=== PATIENT | male | born 1965 | race Two or more races ===

== ENCOUNTER 2016-10-23 14:54 | Emergency (ER) | payer MEDICAID ==
[~2016-10-23] VITALS: Ht 185.4 cm; Wt 88.5 kg
[~2016-10-23 14:54] MED LIST: ASPI81CH49 PO; GLIP-115 PO; LISI-646 PO; METF-370 PO; SIMV10TA84 PO
[2016-10-23] MEDS ORDERED: cloNIDine HCL 0.1 MG TAB PO ONE (16:15)
[2016-10-23 17:04] LABS: Basophils # (auto) 0 uL; Basophils % (auto) 0.5 % (0.0-2.0); CONDITION Y; Eosinophils # (auto) 0.2 uL; Eosinophils % (auto) 3.5 % (0.0-7.0); Hematocrit 26.3 % (41.0-53.0); Hemoglobin 8.9 g/dL (13.5-17.5); Lymphocytes # (auto) 1.8 uL; Lymphocytes % (auto) 32.5 % (10.0-50.0); Mean Corpuscular Hemoglobin 28.3 pg (28.0-32.0); Mean Corpuscular Hgb Conc. 33.6 g/dL (32.0-36.0); Mean Corpuscular Volume 84.2 fL (80.0-100.0); Mean Platelet Volume 7.1 fL (7.4-10.4); Monocytes # (auto) 0.4 uL; Monocytes % (auto) 7.7 % (0.0-12.0); Neutrophils # (auto) 3.1 uL; Neutrophils % (auto) 55.8 % (37.0-80.0); Platelet Count (auto) 284 10^3/uL (140-450); Red Cell Distribution Width 14.8 % (11.6-16.0); White Blood Cell 5.5 10^3/uL (4.4-10.8)
[2016-10-23 17:21] LABS: INR 0.9 (0.9-1.15); Partial Thromboplastin Time 27.9 sec (22.64-33.71); Prothrombin Time 9.8 sec (9.37-12.3)
[2016-10-23 17:34] LABS: B-Type Natriuretic Peptide 114.7 pg/mL (0-100)
[2016-10-23 17:42] LABS: Temperature: 23.1 C (20.0-25.0)
[2016-10-23 18:01] LABS: Albumin 2.6 g/dL (3.4-5.0); Alkaline Phosphatase 111 U/L (45-117); Aspartate Aminotransferase 9 U/L (15-37); BUN/Creatinine Ratio 10.8; Bilirubin, Total 0.1 mg/dL (0.2-1.0); Blood Urea Nitrogen 46 mg/dL (7-18); Calcium 8.2 mg/dL (8.5-10.1); Carbon Dioxide 23 mmol/L (21-32); GFR African American 19 mL/min; GFR Non-African American 16 mL/min; Glucose 173 mg/dL (74-106); Magnesium 2.6 mg/dL (1.6-2.6); Total Protein 6.4 g/dL (6.4-8.2)
[2016-10-23 18:08] LABS: Anion Gap 8 (5-15); Chloride 115 mmol/L (98-107); Sodium 146 mmol/L (136-145)
[2016-10-23 23:00] VITALS: BP 131/79
== END 2016-10-23 23:24 | disposition home or self-care (01) ==
LOC: ER 15:10
DX: N17.9 Acute kidney failure, unspecified (principal); H57.8 Other specified disorders of eye and adnexa; R53.1 Weakness; I16.0 Hypertensive urgency; E11.65 Type 2 diabetes mellitus with hyperglycemia; E78.5 Hyperlipidemia, unspecified; I10 Essential (primary) hypertension; Z79.899 Other long term (current) drug therapy; R42 Dizziness and giddiness
CPT/HCPCS: 36415; 70450; 80053; 83735; 83880; 84484; 85025; 85610; 85730; 93005; 94761

== ENCOUNTER 2017-04-09 18:58 | Emergency (ER) | payer MEDICAID ==
[~2017-04-09] VITALS: Ht 185.4 cm; Wt 90.7 kg
[~2017-04-09 18:58] MED LIST changes: +AMLO5TAB2 PO; +ATOR1TAB PO; -LISI-646 PO; -METF-370 PO; +METO-158 PO; +PANT40TA2 PO; +SEVE800T PO; -SIMV10TA84 PO
[2017-04-09 20:01] LABS: Basophils # (auto) 0 uL; Basophils % (auto) 0.7 % (0.0-2.0); Eosinophils # (auto) 0.2 uL; Eosinophils % (auto) 3.5 % (0.0-7.0); Hemoglobin 11.5 g/dL (13.5-17.5); Lymphocytes # (auto) 1.4 uL; Lymphocytes % (auto) 19.7 % (10.0-50.0); Mean Corpuscular Hemoglobin 27.6 pg (28.0-32.0); Mean Corpuscular Hgb Conc. 32.8 g/dL (32.0-36.0); Mean Corpuscular Volume 84.3 fL (80.0-100.0); Monocytes # (auto) 0.5 uL; Neutrophils # (auto) 4.9 uL; Neutrophils % (auto) 69.1 % (37.0-80.0); Platelet Count (auto) 195 10^3/uL (140-450); Red Blood Cells 4.15 10^6/uL (4.5-5.90); Red Cell Distribution Width 14.7 % (11.8-14.3); White Blood Cell 7.1 10^3/uL (4.4-10.8)
[2017-04-09] MEDS ORDERED: cloNIDine HCL 0.1 MG TAB ONE (20:14)
[2017-04-09] MEDS ORDERED: cloNIDine HCL 0.1 MG TAB PO ONE (20:15)
[2017-04-09 20:23] LABS: Albumin 3.4 g/dL (3.4-5.0); BUN/Creatinine Ratio 6.1; Calcium 8.3 mg/dL (8.5-10.1); Potassium 4.7 mmol/L (3.5-5.1)
[2017-04-09 20:29] LABS: Bilirubin, Total 0.4 mg/dL (0.2-1.0); Total Protein 7.5 g/dL (6.4-8.2)
[2017-04-09] MEDS ORDERED: MORPHINE SULFATE 4 MG/ML SYR/VIAL IV ONE (20:30)
[2017-04-09] MEDS ORDERED: ONDANSETRON HCL 4 MG/2 ML VIAL IV ONE (20:30)
[2017-04-09] MEDS ORDERED: ONDANSETRON HCL 4 MG/2 ML VIAL ONE (20:32)
[2017-04-09] MEDS ORDERED: MORPHINE SULFATE 4 MG/ML SYR/VIAL ONE (20:32)
[2017-04-09 20:46] LABS: INR 0.97 (0.9-1.15); Partial Thromboplastin Time 26.9 sec (22.64-33.71); Prothrombin Time 10.6 sec (9.37-12.3)
[2017-04-09] MEDS ORDERED: LABETALOL HCL 200 MG TAB PO ONE (21:45)
[2017-04-09] MEDS ORDERED: VALSARTAN 80 MG TAB PO ONE (23:00)
[2017-04-10] MEDS ORDERED: LABETALOL HCL 200 MG TAB PO ONE (00:45)
[2017-04-10 03:54] VITALS: BP 119/72
== END 2017-04-10 04:16 | disposition home or self-care (01) ==
LOC: ER 18:58
DX: N20.0 Calculus of kidney (principal); R51 Headache; N18.6 End stage renal disease; E11.22 Type 2 diabetes mellitus with diabetic chronic kidney disease; I12.0 Hypertensive chronic kidney disease with stage 5 chronic kidney disease or end stage renal disease; E78.5 Hyperlipidemia, unspecified; Z99.2 Dependence on renal dialysis
CPT/HCPCS: 36415; 70450; 71045; 74176; 80053; 82150; 83690; 83735; 83880; 84484; 85025; 85379; 85610; 85730; 93005; 96374; 96375; 99285; J2270; J2405

== ENCOUNTER 2017-07-18 18:27 | Inpatient (IN) | payer MEDICAID, OTHER ==
[~2017-07-18] VITALS: Ht 185.4 cm; Wt 90.5 kg
[2017-07-18] MEDS ORDERED: cloNIDine HCL 0.1 MG TAB ONE (19:34)
[2017-07-18] MEDS ORDERED: ONDANSETRON HCL 4 MG/2 ML VIAL ONE (19:35)
[2017-07-18 19:56] LABS: INR 0.98 (0.9-1.15); Partial Thromboplastin Time 26.6 sec (22.64-33.71); Prothrombin Time 10.7 sec (9.37-12.3)
[2017-07-18 20:13] LABS: Albumin 3.7 g/dL (3.4-5.0); BUN/Creatinine Ratio 16.9; Bilirubin, Total 1.3 mg/dL (0.2-1.0); Calcium 7.7 mg/dL (8.5-10.1); Magnesium 1.9 mg/dL (1.6-2.6); Potassium 3.8 mmol/L (3.5-5.1); Total Protein 7.1 g/dL (6.4-8.2)
[2017-07-18 20:39] LABS: Basophils # (auto) 0 uL; Basophils % (auto) 0.4 % (0.0-2.0); Eosinophils # (auto) 0 uL; Eosinophils % (auto) 0.1 % (0.0-7.0); Hemoglobin 13.2 g/dL (13.5-17.5); Lymphocytes # (auto) 0.4 uL; Lymphocytes % (auto) 5.2 % (10.0-50.0); Mean Corpuscular Hemoglobin 30.7 pg (28.0-32.0); Mean Corpuscular Hgb Conc. 32.9 g/dL (32.0-36.0); Mean Corpuscular Volume 93.3 fL (80.0-100.0); Monocytes # (auto) 0.6 uL; Monocytes % (auto) 7.3 % (0.0-12.0); Neutrophils # (auto) 6.9 uL; Platelet Count (auto) 153 10^3/uL (140-450); Red Blood Cells 4.29 10^6/uL (4.5-5.90); Red Cell Distribution Width 14.3 % (11.8-14.3)
[2017-07-18] MEDS ORDERED: LABETALOL HCL 200 MG TAB PO ONE (21:00)
[2017-07-18] MEDS ORDERED: ENALAPRILAT 1.25 MG/ML-1ML VIAL IV ONE ×2 (22:30)
[2017-07-19] MEDS ORDERED: HYDROcodone-ACET 10/325MG TAB PO ONE (01:45)
[2017-07-19] MEDS ORDERED: LABETALOL HCL 200 MG TAB PO ONE (03:00)
[2017-07-19] MEDS ORDERED: HYDROcodone-ACET 5/325MG TAB PO PRN (05:15)
[2017-07-19] MEDS ORDERED: ACETAMINOPHEN 325 MG TAB PO PRN (05:15)
[2017-07-19] MEDS ORDERED: NITROGLYCERIN 0.4 MG SL TAB SL PRN (05:15)
[2017-07-19] MEDS ORDERED: ONDANSETRON HCL 4 MG/2 ML VIAL IV PRN (05:15)
[2017-07-19] MEDS ORDERED: cloNIDine HCL 0.1 MG TAB PO PRN (05:15)
[2017-07-19] MEDS ORDERED: TEMAZEPAM 15 MG CAP PO PRN (05:15)
[2017-07-19] MEDS ORDERED: MORPHINE SULFATE 4 MG/ML SYR/VIAL IV PRN (05:15)
[2017-07-19 05:55] VITALS: BP 99/70
[2017-07-19] MEDS ORDERED: IOHEXOL 350 MG/ML 100ML IJ ONE ×2 (05:59→08:53)
[2017-07-19] MEDS ORDERED: glipiZIDE 5 MG TAB PO SCH (07:00)
[2017-07-19] MEDS ORDERED: SEVELAMER 800 MG TAB PO SCH (08:00)
[2017-07-19 09:00] VITALS: BP 99/70
[2017-07-19] MEDS ORDERED: ASPirin 81 mg TAB PO SCH (10:00)
[2017-07-19] MEDS ORDERED: LISINOPRIL 10 MG TAB PO SCH (10:00)
[2017-07-19] MEDS ORDERED: ENOXAPARIN SOD 40 MG/0.4 ML SYRINGE SC SCH (10:00)
[2017-07-19] MEDS ORDERED: FAMOTIDINE 20 MG TAB PO SCH (10:00)
[2017-07-19 13:00] VITALS: BP 132/76
[2017-07-19 13:38] VITALS: BP 132/76
[2017-07-19] MEDS ORDERED: MORPHINE SULFATE 8mg/ml INJ SDV IV PRN (17:00)
[2017-07-19] MEDS ORDERED: ATORVASTATIN 20 MG TAB PO SCH (22:00)
== END 2017-07-19 17:01 | disposition home or self-care (01) | DRG 194 ==
LOC: ER 18:27 → TELE 18:28 → EDUNIT# 18:28 → TELE-EAST 07-19 06:19
PROVIDERS: ADMIT Nurse Practitioner; ATTEND Internal Medicine
DX: I13.2 Hypertensive heart and chronic kidney disease with heart failure and with stage 5 chronic kidney disease, or end stage renal disease (principal); N18.6 End stage renal disease; D68.69 Other thrombophilia; E11.22 Type 2 diabetes mellitus with diabetic chronic kidney disease; N25.81 Secondary hyperparathyroidism of renal origin; I16.0 Hypertensive urgency; I16.9 Hypertensive crisis, unspecified; D64.9 Anemia, unspecified; R74.8 Abnormal levels of other serum enzymes; R79.1 Abnormal coagulation profile; G47.00 Insomnia, unspecified; E78.5 Hyperlipidemia, unspecified; I25.2 Old myocardial infarction; Z82.49 Family history of ischemic heart disease and other diseases of the circulatory system; Z83.3 Family history of diabetes mellitus; Z99.2 Dependence on renal dialysis; Z79.899 Other long term (current) drug therapy
CPT/HCPCS: 36415; 70450; 71045; 80053; 82962; 83735; 83880; 84484; 85025; 85379; 85610; 85730; 93970; 94761; J2405

== ENCOUNTER 2018-02-18 15:49 | Inpatient (IN) | payer MEDICAID ==
[~2018-02-18] VITALS: Ht 175.3 cm; Wt 100.3 kg
[~2018-02-18 15:49] MED LIST changes: +AMLO5TAB13 PO; -AMLO5TAB2 PO; +B-CO-15 OR; +DOCU100T15 PO; +FERR-20 PO; +FURO80TA PO
[2018-02-18] MEDS ORDERED: ACETAMINOPHEN 325 MG TAB PO ONE (17:15)
[2018-02-18 17:25] LABS: Basophils # (auto) 0 uL; Basophils % (auto) 0.5 % (0.0-2.0); Eosinophils # (auto) 0.1 uL; Eosinophils % (auto) 1.2 % (0.0-7.0); Hematocrit 31.4 % (41.0-53.0); Hemoglobin 10.6 g/dL (13.5-17.5); Lymphocytes # (auto) 0.4 uL; Lymphocytes % (auto) 5.5 % (10.0-50.0); Mean Corpuscular Hemoglobin 30.2 pg (28.0-32.0); Mean Corpuscular Hgb Conc. 33.8 g/dL (32.0-36.0); Mean Corpuscular Volume 89.3 fL (80.0-100.0); Monocytes # (auto) 0.3 uL; Monocytes % (auto) 3.9 % (0.0-12.0); Neutrophils # (auto) 6.3 uL; Neutrophils % (auto) 88.9 % (37.0-80.0); Platelet Count (auto) 179 10^3/uL (140-450); Red Blood Cells 3.52 10^6/uL (4.5-5.90); Red Cell Distribution Width 14.1 % (11.8-14.3); White Blood Cell 7.1 10^3/uL (4.4-10.8)
[2018-02-18 17:35] LABS: Alanine Aminotransferase 13 U/L (16-61); Albumin 3.5 g/dL (3.4-5.0); Anion Gap 5 (5-15); Aspartate Aminotransferase 17 U/L (15-37); BUN/Creatinine Ratio 4.4; Blood Urea Nitrogen 29 mg/dL (7-18); Calcium 7.4 mg/dL (8.5-10.1); Carbon Dioxide 32 mmol/L (21-32); Chloride 97 mmol/L (98-107); GFR African American 11 mL/min; GFR Non-African American 9 mL/min; Glucose 174 mg/dL (74-106); Magnesium 2.1 mg/dL (1.6-2.6); Potassium 4.3 mmol/L (3.5-5.1); Sodium 134 mmol/L (136-145)
[2018-02-18 17:40] LABS: Alkaline Phosphatase 214 U/L (45-117); Bilirubin, Total 0.3 mg/dL (0.2-1.0); INR 0.95 (0.9-1.15); Partial Thromboplastin Time 28.2 sec (23.78-33.04); Prothrombin Time 10.2 sec (9.27-12.13); Total Protein 7.4 g/dL (6.4-8.2)
[2018-02-18] MEDS ORDERED: cefTRIAXone 1GM/50ML D5W 50 ML IV ONE (18:00)
[2018-02-18] MEDS ORDERED: HYDROcodone-ACET 7.5/325MG TAB PO PRN (18:00)
[2018-02-18] MEDS ORDERED: VANCOMYCIN PER PHARMACY 0 MG IV SCH (18:00)
[2018-02-18] MEDS ORDERED: TEMAZEPAM 15 MG CAP PO PRN (18:15)
[2018-02-18] MEDS ORDERED: ACETAMINOPHEN 325 MG TAB PO PRN (18:15)
[2018-02-18] MEDS ORDERED: DOCUSATE SOD 100 MG CAP PO PRN (18:15)
[2018-02-18] MEDS ORDERED: MORPHINE SULFATE 4 MG/ML SYR/VIAL IV PRN ×2 (18:15)
[2018-02-18] MEDS ORDERED: NITROGLYCERIN 0.4 MG SL TAB SL PRN (18:15)
[2018-02-18] MEDS ORDERED: ONDANSETRON HCL 4 MG/2 ML VIAL IV PRN (18:15)
[2018-02-18] MEDS ORDERED: VANCOMYCIN 1GM/250ML 250 ML IV ONE (18:30)
[2018-02-18] MEDS: FERROUS SULFATE 325 MG TAB PO SCH (18:31)
[2018-02-18] MEDS: SEVELAMER 800 MG TAB PO SCH (18:32)
[2018-02-18] MEDS: glipiZIDE 5 MG TAB PO SCH (18:32)
[2018-02-18 21:30] VITALS: BP 147/57
[2018-02-18] MEDS: ATORVASTATIN 20 MG TAB PO SCH (21:46)
[2018-02-18] MEDS: FAMOTIDINE 20 MG TAB PO SCH (21:46)
[2018-02-18] MEDS: PANTOPRAZOLE 40 MG TAB PO SCH (21:46)
[2018-02-18] MEDS: METOPROLOL TARTRATE 50 MG TAB PO SCH (22:19)
[2018-02-18] MEDS: SODIUM CHLOR 0.9% PF (SALINE LOCK) 10ML VIAL/SYR IV SCH (22:19)
[2018-02-18 22:37] VITALS: BP 147/57
[2018-02-19] MEDS ORDERED: FERR1TAB17 PO (00:04)
[2018-02-19 05:00] VITALS: BP_SYST 159; BP_SYST 98; BP_DIAS 61; BP_DIAS 91
[2018-02-19 06:05] LABS: Basophils # (auto) 0 uL; Basophils % (auto) 0.7 % (0.0-2.0); Eosinophils # (auto) 0.3 uL; Hemoglobin 10.2 g/dL (13.5-17.5); Lymphocytes # (auto) 0.7 uL; Lymphocytes % (auto) 11.7 % (10.0-50.0); Mean Corpuscular Hemoglobin 30.3 pg (28.0-32.0); Mean Corpuscular Hgb Conc. 33.9 g/dL (32.0-36.0); Mean Corpuscular Volume 89.4 fL (80.0-100.0); Monocytes # (auto) 0.4 uL; Neutrophils # (auto) 4.8 uL; Neutrophils % (auto) 76.6 % (37.0-80.0); Platelet Count (auto) 161 10^3/uL (140-450); Red Blood Cells 3.36 10^6/uL (4.5-5.90); White Blood Cell 6.2 10^3/uL (4.4-10.8)
[2018-02-19 06:26] LABS: Albumin 3.1 g/dL (3.4-5.0); Calcium 7.1 mg/dL (8.5-10.1)
[2018-02-19] MEDS: SODIUM CHLOR 0.9% PF (SALINE LOCK) 10ML VIAL/SYR IV SCH ×3 (06:26→21:35)
[2018-02-19] MEDS: glipiZIDE 5 MG TAB PO SCH ×2 (06:26→18:00)
[2018-02-19 06:30] LABS: BUN/Creatinine Ratio 4.9
[2018-02-19 06:32] LABS: Bilirubin, Total 0.4 mg/dL (0.2-1.0); Total Protein 6.9 g/dL (6.4-8.2)
[2018-02-19 09:00] VITALS: BP 161/103
[2018-02-19] MEDS: amLODIPine BESYLATE 5 MG TAB PO SCH (09:00)
[2018-02-19] MEDS: METOPROLOL TARTRATE 50 MG TAB PO SCH ×2 (09:00→21:36)
[2018-02-19] MEDS: B-COMPLEX W/ C & FOLIC ACID(NEPHROVITE TAB) PO SCH (09:01)
[2018-02-19] MEDS: SEVELAMER 800 MG TAB PO SCH ×3 (09:01→18:00)
[2018-02-19] MEDS: FERROUS SULFATE 325 MG TAB PO SCH ×2 (09:01→18:00)
[2018-02-19] MEDS: FUROSEMIDE 40 MG TAB PO SCH (09:02)
[2018-02-19] MEDS: MULTIPLE VITAMIN TAB PO SCH (09:02)
[2018-02-19] MEDS: cefTRIAXone 1GM/50ML D5W 50 ML IV SCH (09:04)
[2018-02-19] MEDS: ASPirin-EC 81 mg tab PO SCH (10:00)
[2018-02-19] MEDS: VELTASSA 8.4 GM PO SCH (10:00)
[2018-02-19 12:00] VITALS: BP 137/77
[2018-02-19] MEDS ORDERED: DEXTROSE (50%) 50ML SYRG IV PRN (13:15)
[2018-02-19 16:53] VITALS: BP 144/76
[2018-02-19] MEDS: InsuLIN REG 1unit/0.01ml Soln (100units/ml) SC SCH ×2 (17:00→22:10)
[2018-02-19] MEDS: ACCU-CHEK COMFORT CURVE STRIP VI SCH ×2 (17:00→22:10)
[2018-02-19] MEDS: ATORVASTATIN 20 MG TAB PO SCH (21:36)
[2018-02-19] MEDS: PANTOPRAZOLE 40 MG TAB PO SCH (21:36)
[2018-02-19] MEDS: FAMOTIDINE 20 MG TAB PO SCH (21:37)
[2018-02-19 21:53] VITALS: BP 152/85
[2018-02-20] MEDS: SODIUM CHLOR 0.9% PF (SALINE LOCK) 10ML VIAL/SYR IV SCH ×3 (06:00→22:17)
[2018-02-20 06:11] LABS: Basophils # (auto) 0 uL; Basophils % (auto) 0.7 % (0.0-2.0); Eosinophils # (auto) 0.3 uL; Hematocrit 30.6 % (41.0-53.0); Hemoglobin 10.3 g/dL (13.5-17.5); Lymphocytes # (auto) 1.4 uL; Lymphocytes % (auto) 28.7 % (10.0-50.0); Mean Corpuscular Hemoglobin 29.8 pg (28.0-32.0); Mean Corpuscular Hgb Conc. 33.5 g/dL (32.0-36.0); Mean Corpuscular Volume 88.8 fL (80.0-100.0); Monocytes # (auto) 0.5 uL; Monocytes % (auto) 11.1 % (0.0-12.0); Neutrophils # (auto) 2.6 uL; Neutrophils % (auto) 52.5 % (37.0-80.0); Nucleated Red Blood Cells % 0.1 %; Platelet Count (auto) 173 10^3/uL (140-450); Red Blood Cells 3.44 10^6/uL (4.5-5.90); Red Cell Distribution Width 13.8 % (11.8-14.3); White Blood Cell 4.9 10^3/uL (4.4-10.8)
[2018-02-20 06:33] LABS: BUN/Creatinine Ratio 5.4; Calcium 7.3 mg/dL (8.5-10.1); Magnesium 2.4 mg/dL (1.6-2.6)
[2018-02-20 06:34] LABS: % Iron Saturation 25.2 % (20-55)
[2018-02-20] MEDS: glipiZIDE 5 MG TAB PO SCH ×2 (06:38→18:00)
[2018-02-20] MEDS: InsuLIN REG 1unit/0.01ml Soln (100units/ml) SC SCH ×4 (06:39→22:00)
[2018-02-20] MEDS: ACCU-CHEK COMFORT CURVE STRIP VI SCH ×4 (06:39→22:17)
[2018-02-20] MEDS ORDERED: EPOETIN ALFA 10,000 UNIT/1 ML VIAL SC ONE (07:00)
[2018-02-20] MEDS ORDERED: SODIUM CHL 0.9% 1000 ML BAG XX ONE (07:15)
[2018-02-20 07:38] LABS: Urine Bacteria NONE SEEN /hpf (None Seen); Urine Blood 1+ /uL (Negative); Urine Sperm PRESENT /hpf (None Seen); Urine WBC 32 /hpf (0 - 3)
[2018-02-20 09:00] VITALS: BP 155/83
[2018-02-20] MEDS: VELTASSA 8.4 GM PO SCH (10:00)
[2018-02-20] MEDS: FERROUS SULFATE 325 MG TAB PO SCH ×2 (10:12→18:00)
[2018-02-20] MEDS: SEVELAMER 800 MG TAB PO SCH ×3 (10:12→18:00)
[2018-02-20] MEDS: cefTRIAXone 1GM/50ML D5W 50 ML IV SCH (10:13)
[2018-02-20] MEDS: METOPROLOL TARTRATE 50 MG TAB PO SCH ×2 (10:13→22:11)
[2018-02-20] MEDS: FUROSEMIDE 40 MG TAB PO SCH (10:13)
[2018-02-20] MEDS: B-COMPLEX W/ C & FOLIC ACID(NEPHROVITE TAB) PO SCH (10:14)
[2018-02-20] MEDS: MULTIPLE VITAMIN TAB PO SCH (10:14)
[2018-02-20] MEDS: amLODIPine BESYLATE 5 MG TAB PO SCH (10:14)
[2018-02-20] MEDS ORDERED: VANCOMYCIN 750 MG in D5W 5% 250 ML IV ONE (12:00)
[2018-02-20 13:00] VITALS: BP 142/84
[2018-02-20] MEDS: ASPirin-EC 81 mg tab PO SCH (14:37)
[2018-02-20 16:31] VITALS: BP 132/87
[2018-02-20 21:19] VITALS: BP 145/76
[2018-02-20] MEDS: ATORVASTATIN 20 MG TAB PO SCH (22:09)
[2018-02-20] MEDS: FAMOTIDINE 20 MG TAB PO SCH (22:11)
[2018-02-20] MEDS: PANTOPRAZOLE 40 MG TAB PO SCH (22:11)
[2018-02-21] VITALS (7 sets, daily range): BP systolic 132–160; BP diastolic 81–97
[2018-02-21] MEDS: SODIUM CHLOR 0.9% PF (SALINE LOCK) 10ML VIAL/SYR IV SCH ×2 (05:13→17:02)
[2018-02-21] MEDS: glipiZIDE 5 MG TAB PO SCH ×2 (06:10→18:00)
[2018-02-21] MEDS: InsuLIN REG 1unit/0.01ml Soln (100units/ml) SC SCH ×3 (06:10→17:00)
[2018-02-21] MEDS: ACCU-CHEK COMFORT CURVE STRIP VI SCH ×3 (06:10→17:03)
[2018-02-21 06:24] LABS: BUN/Creatinine Ratio 4.9; Calcium 7.3 mg/dL (8.5-10.1)
[2018-02-21] MEDS: FERROUS SULFATE 325 MG TAB PO SCH ×2 (08:40→18:00)
[2018-02-21] MEDS: SEVELAMER 800 MG TAB PO SCH ×3 (08:40→18:00)
[2018-02-21] MEDS: METOPROLOL TARTRATE 50 MG TAB PO SCH (08:41)
[2018-02-21] MEDS: amLODIPine BESYLATE 5 MG TAB PO SCH (08:41)
[2018-02-21] MEDS: B-COMPLEX W/ C & FOLIC ACID(NEPHROVITE TAB) PO SCH (09:43)
[2018-02-21] MEDS: cefTRIAXone 1GM/50ML D5W 50 ML IV SCH (09:43)
[2018-02-21] MEDS: FUROSEMIDE 40 MG TAB PO SCH (09:43)
[2018-02-21] MEDS: VELTASSA 8.4 GM PO SCH (09:44)
[2018-02-21] MEDS: ASPirin-EC 81 mg tab PO SCH (09:44)
[2018-02-21] MEDS: MULTIPLE VITAMIN TAB PO SCH (09:44)
== END 2018-02-21 17:50 | disposition home or self-care (01) | DRG 720 ==
LOC: EDUNIT# 15:49 → EDBD 15:49 → ER 15:49 → TELE 18:07 → TELE-WESTW 21:20
PROVIDERS: ADMIT Internal Medicine; ATTEND Internal Medicine
PROC: 0JH63XZ Insertion of Tunneled Vascular Access Device into Chest Subcutaneous Tissue and Fascia, Percutaneous Approach (ICD-10-PCS; 2018-02-18)
PROC: 02HV33Z Insertion of Infusion Device into Superior Vena Cava, Percutaneous Approach (ICD-10-PCS; 2018-02-18)
PROC: 5A1D70Z Performance of Urinary Filtration, Intermittent, Less than 6 Hours Per Day (ICD-10-PCS; principal; 2018-02-20)
DX: A41.9 Sepsis, unspecified organism (principal); I13.2 Hypertensive heart and chronic kidney disease with heart failure and with stage 5 chronic kidney disease, or end stage renal disease; E11.21 Type 2 diabetes mellitus with diabetic nephropathy; I95.3 Hypotension of hemodialysis; E11.42 Type 2 diabetes mellitus with diabetic polyneuropathy; E44.1 Mild protein-calorie malnutrition; E11.22 Type 2 diabetes mellitus with diabetic chronic kidney disease; N18.6 End stage renal disease; E83.51 Hypocalcemia; I50.42 Chronic combined systolic (congestive) and diastolic (congestive) heart failure; E78.5 Hyperlipidemia, unspecified; E87.1 Hypo-osmolality and hyponatremia; R55 Syncope and collapse; D63.8 Anemia in other chronic diseases classified elsewhere; Z99.2 Dependence on renal dialysis; Z87.442 Personal history of urinary calculi; Z82.49 Family history of ischemic heart disease and other diseases of the circulatory system; Z87.891 Personal history of nicotine dependence; Z83.3 Family history of diabetes mellitus; Z68.32 Body mass index [BMI] 32.0-32.9, adult
CPT/HCPCS: 36415; 70450; 71045; 80048; 80053; 80061; 80202; 81001; 82728; 82962; 83540; 83550; 83605; 83735; 83880; 84100; 84443; 84484; 85025; 85610; 85730; 87040; 87081; 87086; 87804; 90935; 93005; 94761; 95819; 97163; G0378; J0696; J0885; J1642; J1815; J7060

== ENCOUNTER 2018-12-23 18:57 | Inpatient (IN) | payer MEDICAID ==
[~2018-12-23] VITALS: Ht 188 cm; Wt 99.9 kg
[~2018-12-23 18:57] MED LIST changes: -AMLO5TAB13 PO; +AMLO5TAB15 PO; +FERR1TAB17 PO; +FURO1TAB32 PO; -FURO80TA PO; -GLIP-115 PO; +GLIP5TAB12 PO
[2018-12-23 19:49] LABS: Basophils # (auto) 0 uL; Basophils % (auto) 0.7 % (0.0-2.0); Eosinophils # (auto) 0.1 uL; Eosinophils % (auto) 3.9 % (0.0-7.0); Hematocrit 32.5 % (41.0-53.0); Hemoglobin 10.8 g/dL (13.5-17.5); Lymphocytes # (auto) 1.7 uL; Lymphocytes % (auto) 44.8 % (10.0-50.0); Mean Corpuscular Hemoglobin 29.5 pg (28.0-32.0); Mean Corpuscular Hgb Conc. 33.1 g/dL (32.0-36.0); Mean Corpuscular Volume 88.9 fL (80.0-100.0); Monocytes # (auto) 0.4 uL; Monocytes % (auto) 9.6 % (0.0-12.0); Neutrophils # (auto) 1.6 uL; Platelet Count (auto) 176 10^3/uL (140-450); Red Blood Cells 3.65 10^6/uL (4.5-5.90); White Blood Cell 3.8 10^3/uL (4.4-10.8)
[2018-12-23 20:02] LABS: Partial Thromboplastin Time 29.1 sec (23.64-32.05)
[2018-12-23 20:03] LABS: Albumin 3.6 g/dL (3.4-5.0); BUN/Creatinine Ratio 4.6; Calcium 8.8 mg/dL (8.5-10.1); Potassium 5.3 mmol/L (3.5-5.1)
[2018-12-23 20:07] LABS: Bilirubin, Total 0.3 mg/dL (0.2-1.0); Total Protein 7.2 g/dL (6.4-8.2)
[2018-12-23 20:45] LABS: Magnesium 2.5 mg/dL (1.6-2.6)
[2018-12-23] MEDS ORDERED: MORPHINE SULFATE 4 MG/ML SYR/VIAL IV ONE (22:00)
[2018-12-23] MEDS ORDERED: NITROGLYCERIN 0.4 MG SL TAB SL ONE (22:00)
[2018-12-23] MEDS ORDERED: ONDANSETRON HCL 4 MG/2 ML VIAL IV ONE (22:00)
[2018-12-24] MEDS ORDERED: SODIUM ZIRCONIUM CYCL 10 GM PAK PO ONE ×2 (00:15→08:00)
[2018-12-24] MEDS ORDERED: NITROGLYCERIN 0.4 MG SL TAB SL PRN (00:45)
[2018-12-24] MEDS ORDERED: TEMAZEPAM 15 MG CAP PO PRN (00:45)
[2018-12-24] MEDS ORDERED: MORPHINE SULF INJ 2 MG/ML SYRINGE 1ML IV PRN (00:45)
[2018-12-24] MEDS ORDERED: ONDANSETRON HCL 4 MG/2 ML VIAL IV PRN (00:45)
[2018-12-24] MEDS ORDERED: DEXTROSE (50%) 50ML SYRG IV PRN (00:45)
[2018-12-24] MEDS ORDERED: ACETAMINOPHEN 325 MG TAB PO PRN (00:45)
--- NOTE | 2018-12-24 02:39 | NUR ---
Telemetry admit from ER JOSIAS WOOD admitted to Telemetry unit after SBAR received. Patient oriented to RICCI BOSE, RN primary RN, unit, room, bed, and unit policies regarding patient care and visiting hours. Patient now on continuous telemetry monitoring, tele box # 74 and telemetry reading on arrival to unit is 84. Patient placed on bed, weighed by bedscale and encouraged to call if they need something. All questions and concerns addressed, patient verbalized understanding. Patient's BP 178/95 will adminster prn clonidine
--- NOTE | 2018-12-24 02:40 | NUR ---
Patient states he will inform his to bring his home medications in the morning d/t patient not having a current list of them on hand at this time.
[2018-12-24 02:42] VITALS: BP 178/95
[2018-12-24] MEDS: cloNIDine HCL 0.1 MG TAB PO PRN (03:06)
[2018-12-24 05:00] VITALS: BP 144/68
--- NOTE | 2018-12-24 05:00 | NUR ---
Lokelma medication not administer due to medication not available. Read note to administer Lokelma to 0400. Due to patient's high blood pressure when he arrived at the unit (0300);I administer PO clonidine. Lokelma instructions are to be administer medication two hours before or after po meds. At 0500 the medication was not avaible in the pixsis due to being a one time order and already pulled out. The medication was pulled out by AQUILES Loomis. I call AQUILES Loomis down at ER and she stated, she did not to have the medication. Will call inhouse pharmacy at 0630.
[2018-12-24] MEDS: InsuLIN REG 1unit/0.01ml Soln (100units/ml) SC SCH ×4 (06:00→23:37)
[2018-12-24] MEDS: ACCU-CHEK COMFORT CURVE STRIP VI SCH ×4 (06:44→23:37)
--- NOTE | 2018-12-24 06:45 | NUR ---
Dr. Figueroa called to verify patient's dialysis center. He then order to put an order for nephrology consult for Dr. Figueroa. Repeated orders to verify, will follow orders.
--- NOTE | 2018-12-24 07:05 | NUR ---
Call pharmacy in regards of patient Lokelma medication. Lady on the phone said she'll have the pharmacist take a look. Will notify day shift nurse.
[2018-12-24 07:33] LABS: Albumin 3.3 g/dL (3.4-5.0); Calcium 8.7 mg/dL (8.5-10.1)
[2018-12-24 07:36] LABS: BUN/Creatinine Ratio 5.1; Bilirubin, Total 0.3 mg/dL (0.2-1.0); Total Protein 6.6 g/dL (6.4-8.2)
--- NOTE | 2018-12-24 07:50 | NUR ---
PATIENT ROUNDS PATIENT SITTING IN BED, NO DISTRESS NOTED. PATIENT EDUCATED ON POTASSIUM LEVEL AND MEDICATION ORDERED TO COVER PER MD ORDERS. RASHEL HELD THIS AM DUE TO PROTOCOL OF KELVT--PER PHARMACY-DO NOT ADMINISTER ORAL MEDICATIONS 2 HOURS PRIOR TO OR 2 HOURS AFTER ADMINISTERING THE LOKELMA.
[2018-12-24] MEDS: FERROUS SULFATE 325 MG TAB PO SCH ×2 (08:00→18:01)
[2018-12-24] MEDS: SEVELAMER 800 MG TAB PO SCH ×3 (08:00→18:01)
[2018-12-24 08:14] VITALS: BP 148/81
--- NOTE | 2018-12-24 09:30 | NUR ---
HD MANAGER SCIENTIFIC AT BEDSIDE
[2018-12-24] MEDS ORDERED: SODIUM CHL 0.9% 1000 ML BAG XX ONE (09:45)
[2018-12-24] MEDS: FUROSEMIDE 40 MG TAB PO SCH (10:00)
[2018-12-24] MEDS: ASPirin 81 mg TAB PO SCH (10:00)
[2018-12-24] MEDS ORDERED: PANTOPRAZOLE 40 MG TAB PO SCH (10:00)
[2018-12-24] MEDS: amLODIPine BESYLATE 5 MG TAB PO SCH (10:00)
[2018-12-24] MEDS: PANTOPRAZOLE 40 MG TAB PO SCH (10:00)
[2018-12-24] MEDS: METOPROLOL TARTRATE 50 MG TAB PO SCH ×2 (10:00→22:22)
--- NOTE | 2018-12-24 12:08 | NUR ---
FAMILY FAMILY AT BEDSIDE, UPDATED ON POC, ALL QUESTIONS AND CONCERNS ADDRESSED.
[2018-12-24 13:11] VITALS: BP 110/60
--- NOTE | 2018-12-24 16:02 | NUR ---
Social Service consult regarding Advance Directives. Provided pt with information on Advance Directive. Pt verbalized understanding and wanted information. Will contact Vocational Auto Body Instructor for any further concerns or issues.
[2018-12-24 16:31] VITALS: BP 146/76
--- NOTE | 2018-12-24 19:30 | NUR ---
OPENING NOTE REPORT RECEIVED FROM DAY SHIFT RN PATIENT IS A/OX4, ABLE TO ANSWER ALL QUESTIONS APPROPRIATELY. LEFT FOREARM FISTULA, BRUIT AND THRILL PRESENT. IV TO RIGHT FOREARM PATENT. CANE AT BEDSIDE. FALL PRECAUTIONS IN PLACE. POC DISCUSSED FOR TONIGHT AND ALL QUESTIONS ANSWERED. CALL LIGHT WITHIN REACH.
[2018-12-24 21:48] VITALS: BP 139/73
[2018-12-24] MEDS: ATORVASTATIN 20 MG TAB PO SCH (22:22)
--- NOTE | 2018-12-25 | NUR ---
IV removal TO RIGHT WRIST DUE TO PT ACCIDENTALLY PULLED IT OUT IV DC'd with clean sterile technique, catheter fully intact. Pressure dressing applied to site. Patient tolerated well.
--- NOTE | 2018-12-25 00:17 | NUR ---
IV insertion IV access obtained, via clean sterile technique by inserting 20 gauge catheter at RIGHT FOREARM after 1 attempt. IV secured properly. No trauma to site. Patient tolerated well.
[2018-12-25 04:54] VITALS: BP 160/92
[2018-12-25 05:55] LABS: Basophils # (auto) 0 uL; Basophils % (auto) 0.6 % (0.0-2.0); Eosinophils # (auto) 0.2 uL; Eosinophils % (auto) 4.1 % (0.0-7.0); Hematocrit 32.8 % (41.0-53.0); Hemoglobin 11.2 g/dL (13.5-17.5); Lymphocytes # (auto) 1.8 uL; Lymphocytes % (auto) 36.6 % (10.0-50.0); Mean Corpuscular Hemoglobin 30.1 pg (28.0-32.0); Mean Corpuscular Hgb Conc. 34.1 g/dL (32.0-36.0); Mean Corpuscular Volume 88.3 fL (80.0-100.0); Monocytes # (auto) 0.5 uL; Monocytes % (auto) 9.4 % (0.0-12.0); Neutrophils # (auto) 2.4 uL; Neutrophils % (auto) 49.3 % (37.0-80.0); Nucleated Red Blood Cells % 0.1 %; Platelet Count (auto) 162 10^3/uL (140-450); Red Blood Cells 3.72 10^6/uL (4.5-5.90); Red Cell Distribution Width 14.5 % (11.8-14.3); White Blood Cell 4.8 10^3/uL (4.4-10.8)
[2018-12-25] MEDS: ACCU-CHEK COMFORT CURVE STRIP VI SCH ×3 (05:57→21:34)
[2018-12-25] MEDS: InsuLIN REG 1unit/0.01ml Soln (100units/ml) SC SCH ×3 (05:59→21:36)
--- NOTE | 2018-12-25 06:12 | NUR ---
IV insertion. 2ND IV PLACED FOR CARDIOLITE STRESS TEST IV access obtained, via clean sterile technique by inserting 20 gauge catheter at RIGHT FOREARM after 1 attempt. IV secured properly. No trauma to site. Patient tolerated well.
[2018-12-25 06:13] LABS: Calcium 8.9 mg/dL (8.5-10.1); Potassium 5.4 mmol/L (3.5-5.1)
--- NOTE | 2018-12-25 06:53 | NUR ---
CLOSING PATIENT IS RESTING IN BED. NO S/S OF DISTRESS NOTED. TWO IV'S IN PLACE FOR PENDING CARDIOLITE TEST. CALL LIGHT WITHIN REACH WILL ENDORSE CARE TO AM SHIFT RN
--- NOTE | 2018-12-25 07:45 | NUR ---
Opening Note Assumed care of patient, he is A & O x4, no s/s of distress, notified patient he is NPO for cardiolite stress test today. Patient agreed. POC discussed. Patient comfortable at this time. No c/o pain. Bed is in lowest, locked position, call light within reach. Bed rails up x2. Will continue to monitor Q1h and PRN.
[2018-12-25] MEDS: SEVELAMER 800 MG TAB PO SCH ×3 (08:00→17:53)
[2018-12-25] MEDS ORDERED: ADENOSINE 84 MG in GIVE UN-DILUTED 0 ML IV STA (08:19)
--- NOTE | 2018-12-25 08:48 | NUR ---
Patient to stress lab for procedure.
[2018-12-25 09:00] VITALS: BP 147/95
[2018-12-25] MEDS: METOPROLOL TARTRATE 50 MG TAB PO SCH ×2 (11:40→21:32)
[2018-12-25] MEDS: PANTOPRAZOLE 40 MG TAB PO SCH (11:41)
[2018-12-25] MEDS: amLODIPine BESYLATE 5 MG TAB PO SCH (11:41)
[2018-12-25] MEDS: FERROUS SULFATE 325 MG TAB PO SCH ×2 (11:41→17:53)
[2018-12-25] MEDS: FUROSEMIDE 40 MG TAB PO SCH (11:41)
[2018-12-25] MEDS: ASPirin 81 mg TAB PO SCH (11:42)
[2018-12-25] MEDS ORDERED: DEXTROSE (50%) 50ML SYRG IV PRN (12:30)
[2018-12-25 13:00] VITALS: BP 184/100
[2018-12-25 14:05] VITALS: BP 164/91
--- NOTE | 2018-12-25 15:20 | NUR ---
Social Service consult regarding Advance Directives. Provided pt with information on Advance Directives and Durable Power of county attorney form. Pt verbalized understanding and accepted information. Will contact Insurance Sales Producer for any further concerns or issues.
[2018-12-25] MEDS: cloNIDine HCL 0.1 MG TAB PO PRN (16:40)
[2018-12-25 17:00] VITALS: BP 158/88
--- NOTE | 2018-12-25 19:10 | NUR ---
Care endorsed to Melanie RN, NOC shift. All questions answered to RN satisfaction. Patient with no s/s of distress.
--- NOTE | 2018-12-25 19:32 | NUR ---
OPENING NOTE PATIENT IS AWAKE, TALKING WITH FAMILY MEMBERS AT BEDSIDE. NO S/S OF DISTRESS NOTED. PATIENT DENIES ANY PAIN OR DISCOMFORT AT THIS TIME. POC DISCUSSED, ALL QUESTIONS ANSWERED. CALL LIGHT WITHIN REACH.
[2018-12-25] MEDS: ATORVASTATIN 20 MG TAB PO SCH (21:32)
[2018-12-25 22:00] VITALS: BP 135/78
--- NOTE | 2018-12-26 05:00 | NUR ---
BILATERAL GROINS SHAVED ORDERED FOR LEFT HEART CATH
[2018-12-26 05:23] LABS: Basophils # (auto) 0 uL; Basophils % (auto) 0.9 % (0.0-2.0); Eosinophils # (auto) 0.2 uL; Eosinophils % (auto) 4.5 % (0.0-7.0); Hematocrit 32.1 % (41.0-53.0); Hemoglobin 10.8 g/dL (13.5-17.5); Lymphocytes % (auto) 38.8 % (10.0-50.0); Mean Corpuscular Hemoglobin 29.8 pg (28.0-32.0); Mean Corpuscular Hgb Conc. 33.7 g/dL (32.0-36.0); Mean Corpuscular Volume 88.4 fL (80.0-100.0); Monocytes # (auto) 0.5 uL; Monocytes % (auto) 8.9 % (0.0-12.0); Neutrophils # (auto) 2.4 uL; Neutrophils % (auto) 46.9 % (37.0-80.0); Nucleated Red Blood Cells % 0.1 %; Platelet Count (auto) 168 10^3/uL (140-450); Red Blood Cells 3.64 10^6/uL (4.5-5.90); Red Cell Distribution Width 14.6 % (11.8-14.3); White Blood Cell 5.1 10^3/uL (4.4-10.8)
[2018-12-26 05:37] LABS: Partial Thromboplastin Time 29.4 sec (23.64-32.05)
[2018-12-26 05:42] LABS: BUN/Creatinine Ratio 5.8; Calcium 8.7 mg/dL (8.5-10.1)
[2018-12-26 05:58] LABS: Potassium 5.6 mmol/L (3.5-5.1)
--- NOTE | 2018-12-26 05:58 | NUR ---
CRITICAL LAB RECEIVED CRITICAL POTASSIUM OF 5.6 AND CREATININE OF 11.8. WILL PAGE VULCANIZER OPERATOR HOSPITALIST TO NOTIFY THEM OF CRITICAL RESULTS
--- NOTE | 2018-12-26 06:00 | NUR ---
PAGED HOSPITALIST RE:CRITICAL LABS AWAITING CALL BACK
[2018-12-26 06:03] VITALS: BP 153/92
[2018-12-26] MEDS: ACCU-CHEK COMFORT CURVE STRIP VI SCH ×4 (06:08→23:06)
[2018-12-26] MEDS: InsuLIN REG 1unit/0.01ml Soln (100units/ml) SC SCH ×4 (06:08→22:00)
--- NOTE | 2018-12-26 06:16 | NUR ---
CHG WIPES DONE
--- NOTE | 2018-12-26 06:36 | NUR ---
RECEIVED CALL BACK FROM HOSPITALIST CHAI ORDER READ BACK AND VERIFIED WILL CARRY OUT ORDER
[2018-12-26] MEDS ORDERED: SODIUM ZIRCONIUM CYCL 10 GM PAK PO ONE (06:45)
[2018-12-26] MEDS ORDERED: SODIUM CHL 0.9% 1000 ML BAG XX ONE (07:00)
--- NOTE | 2018-12-26 07:01 | NUR ---
CLOSING PATIENT IS RESTING IN BED. NO S/S OF DISTRESS. CALL LIGHT WITHIN REACH. CONSENTS FOR LEFT HEART CATH PLACED IN CHART.
--- NOTE | 2018-12-26 07:20 | NUR ---
Opening Shift Note Assumed care of patient, patient resting in bed. No S/S of distress/SOB or pain. Instructed on POC and to call for assist PRN, call light within reach and bed in locked and lowest positin. Will continue to monitor for changes Q1hr and PRN.
[2018-12-26] MEDS: SEVELAMER 800 MG TAB PO SCH ×3 (08:00→18:09)
[2018-12-26] MEDS: FERROUS SULFATE 325 MG TAB PO SCH ×2 (08:00→18:09)
[2018-12-26] MEDS: amLODIPine BESYLATE 5 MG TAB PO SCH (08:34)
[2018-12-26] MEDS: FUROSEMIDE 40 MG TAB PO SCH (08:35)
[2018-12-26] MEDS: ASPirin 81 mg TAB PO SCH (08:35)
[2018-12-26] MEDS: METOPROLOL TARTRATE 50 MG TAB PO SCH ×2 (08:35→23:06)
[2018-12-26] MEDS: PANTOPRAZOLE 40 MG TAB PO SCH (08:35)
[2018-12-26 09:00] VITALS: BP 162/83
--- NOTE | 2018-12-26 11:18 | NUR ---
Patient taken down to Trimming Press Operator
[2018-12-26] MEDS ORDERED: LIDOCAINE 2%HCL (LOCAL ANESTH.) INJ 20ML MDV ONE (11:56)
[2018-12-26] MEDS ORDERED: IOHEXOL 350 MG/ML 100ML IJ ONE (11:56)
[2018-12-26] MEDS ORDERED: ANGIOMAX 250 MG VIAL IV ONE (12:20)
[2018-12-26] MEDS ORDERED: fentaNYL CITRATE 100 MCG/2 ML VL ONE (12:20)
[2018-12-26] MEDS ORDERED: MIDAZOLAM HCL 1MG/1ML-2 ML VIAL ONE (12:21)
[2018-12-26] MEDS ORDERED: SODIUM CHL 0.9% 0 ML ONE (12:21)
[2018-12-26] MEDS ORDERED: IODIXANOL 320MG/ML 100ML BTL IV ONE (12:32)
--- NOTE | 2018-12-26 13:40 | NUR ---
Patient returned from Accounts Payable Lead and procedure. Patient sleeping, laying flat, with R. groin bandage clean, dry and intact. Patient bp 163/72, 78 bpm, 17 RR, O2 97%. Will continue to monitor.
--- NOTE | 2018-12-26 13:42 | NUR ---
Paged Dr. Glass as requested, and informed her patient has returned from [employer]
[2018-12-26 13:43] VITALS: BP 169/91
--- NOTE | 2018-12-26 14:00 | NUR ---
Dr. Moore bedside with patient.
[2018-12-26] MEDS ORDERED: cloNIDine HCL 0.1 MG TAB ONE (16:42)
[2018-12-26] MEDS: cloNIDine HCL 0.1 MG TAB PO PRN (16:44)
[2018-12-26 17:00] VITALS: BP 169/98
--- NOTE | 2018-12-26 17:38 | NUR ---
Dr. Figueroa called regarding patient not receiving dialysis today. She is contacting [facility] and will call me back.
--- NOTE | 2018-12-26 17:45 | NUR ---
Carey with [facility] called, she did not receive orders to dialyze the patient today. She has spoke with Dr. Figueroa, and the patient will be dialyzed first thing tomorrow morning.
--- NOTE | 2018-12-26 17:53 | NUR ---
Dr. Figueroa called back to confirm the patient will be dialyzed tomorrow morning.
--- NOTE | 2018-12-26 19:20 | NUR ---
Opening Shift Note Assumed care of patient, awake and alert. No S/S of distress/SOB or pain. Instructed on POC and to call for assist PRN, will continue to monitor for changes Q1hr and PRN.
[2018-12-26] MEDS ORDERED: EPOETIN ALFA 4,000 UNIT/ML VL SC ONE (21:00)
[2018-12-26 22:00] VITALS: BP 152/87
[2018-12-26] MEDS: ATORVASTATIN 20 MG TAB PO SCH (23:05)
[2018-12-27 05:44] VITALS: BP 149/83
[2018-12-27 06:33] LABS: BUN/Creatinine Ratio 5.9; Calcium 8.7 mg/dL (8.5-10.1)
--- NOTE | 2018-12-27 06:35 | NUR ---
x ray electronics wiring technician has arrived on the unit. Will begin dialysis.
[2018-12-27 06:39] LABS: Potassium 5.6 mmol/L (3.5-5.1)
--- NOTE | 2018-12-27 06:40 | NUR ---
CRITICAL LABS Received critical labs for postassium of 5.6, Bun of 82 and Creatinine of 14.00. The patient is currently receiving dialysis.
[2018-12-27] MEDS: InsuLIN REG 1unit/0.01ml Soln (100units/ml) SC SCH ×3 (06:45→16:56)
[2018-12-27] MEDS: ACCU-CHEK COMFORT CURVE STRIP VI SCH ×3 (06:46→16:18)
--- NOTE | 2018-12-27 08:00 | NUR ---
Opening Shift Note Assumed care of patient, awake, alert and oriented X4. No S/S of distress/SOB or pain. Tele# 68, sinus rhythm @ 68bpm. IV X2, both right forearm, both 20 gauge and both patent and saline locked. Patient is currently receiving hemodialysis. Instructed on POC and to call for assist PRN, verbalized understanding. Bed locked, in lowest position, call light within reach, will continue to monitor for changes Q1hr and PRN.
[2018-12-27] MEDS: FERROUS SULFATE 325 MG TAB PO SCH ×2 (08:38→18:55)
[2018-12-27] MEDS: SEVELAMER 800 MG TAB PO SCH ×3 (08:38→18:55)
[2018-12-27 09:13] VITALS: BP 169/88
[2018-12-27] MEDS ORDERED: ASPirin 81 mg TAB PO SCH (10:00)
[2018-12-27] MEDS: METOPROLOL TARTRATE 50 MG TAB PO SCH (11:11)
[2018-12-27] MEDS: FUROSEMIDE 40 MG TAB PO SCH (11:11)
[2018-12-27] MEDS: amLODIPine BESYLATE 5 MG TAB PO SCH (11:12)
[2018-12-27] MEDS: PANTOPRAZOLE 40 MG TAB PO SCH (11:12)
--- NOTE | 2018-12-27 12:39 | NUR ---
NUTRITION ASSESSMENT NOTES Please refer to link notes of nutrition screen form filed under the intervention section of the plan of care for further details. Est. Needs: 2000 kcal to 2500 kcal (20-25 kcal/kgBW), 100 gms to 140 gms pro (1.0-1.4 gms/kgBW d/t ESRD on HD). Will continue to monitor pertinent labs and reassess nutrient need prn Thank you. Addendum: 12/27/18 at [address] Amended: Links added.
[2018-12-27 14:18] VITALS: BP 148/85
[2018-12-27 17:05] VITALS: BP 151/81
--- NOTE | 2018-12-27 17:20 | NUR ---
ROUNDS Dr Haider at bedside for rounds, new orders received and followed through. Patient updated on plan of care, verbalized understanding.
--- NOTE | 2018-12-27 19:28 | NUR ---
Care endorsed to AQUILES Garza, night nurse.
[2018-12-29 14:31] LABS: Hepatitis B Surface Antigen Negative (Negative)
[2018-12-29 14:32] LABS: Hepatitis A Ab IgM Negative; Hepatitis B Core IgM Negative; Hepatitis C Antibody Negative (Negative)
== END 2018-12-27 20:30 | disposition home or self-care (01) | DRG 191 ==
LOC: ER 18:57 → TELE-WESTW 18:58
PROVIDERS: ADMIT Nurse Practitioner; ATTEND Internal Medicine
PROC: 5A1D70Z Performance of Urinary Filtration, Intermittent, Less than 6 Hours Per Day (ICD-10-PCS; 2018-12-24)
PROC: 4A023N7 Measurement of Cardiac Sampling and Pressure, Left Heart, Percutaneous Approach (ICD-10-PCS; principal; 2018-12-26)
PROC: B2111ZZ Fluoroscopy of Multiple Coronary Arteries using Low Osmolar Contrast (ICD-10-PCS; 2018-12-26)
PROC: B2151ZZ Fluoroscopy of Left Heart using Low Osmolar Contrast (ICD-10-PCS; 2018-12-26)
PROC: 5A1D70Z Performance of Urinary Filtration, Intermittent, Less than 6 Hours Per Day (ICD-10-PCS; 2018-12-27)
DX: I25.10 Atherosclerotic heart disease of native coronary artery without angina pectoris (principal); I13.2 Hypertensive heart and chronic kidney disease with heart failure and with stage 5 chronic kidney disease, or end stage renal disease; E11.22 Type 2 diabetes mellitus with diabetic chronic kidney disease; N18.6 End stage renal disease; E44.1 Mild protein-calorie malnutrition; D63.8 Anemia in other chronic diseases classified elsewhere; E87.5 Hyperkalemia; E78.5 Hyperlipidemia, unspecified; I50.32 Chronic diastolic (congestive) heart failure; J45.909 Unspecified asthma, uncomplicated; E21.3 Hyperparathyroidism, unspecified; K59.00 Constipation, unspecified; E66.9 Obesity, unspecified; Z99.2 Dependence on renal dialysis; Z68.28 Body mass index [BMI] 28.0-28.9, adult; Z79.84 Long term (current) use of oral hypoglycemic drugs; Z83.3 Family history of diabetes mellitus; Z82.49 Family history of ischemic heart disease and other diseases of the circulatory system; Z79.899 Other long term (current) drug therapy
CPT/HCPCS: 36415; 70450; 71046; 78452; 80048; 80053; 80074; 82962; 83036; 83735; 83880; 84132; 84484; 85025; 85610; 85730; 90935; 93005; 93017; 93306; 93458; 96365; 96375; G0378; J0153; J1642; J1815; J2250; J2405; Q9967

== ENCOUNTER 2019-05-04 10:03 | Inpatient (IN) | payer MEDICAID ==
[~2019-05-04] VITALS: Ht 188 cm; Wt 91.8 kg
[~2019-05-04 10:03] MED LIST changes: +ATOR40TA52 PO; +ATRO1SOL15 OP; +DORZ2SOL18 LEFTEYE; +HYDR50TA69 PO; +LISI-646 PO; +NETA1DRO OP; +PRED1SUS4 OP; +SEVE800T8 PO
[2019-05-04 11:25] LABS: Basophils # (auto) 0.1 10 ^3/uL (0-0.2); Eosinophils # (auto) 0.2 10 ^3/uL (0-0.8); Eosinophils % (auto) 3.6 % (0.0-7.0); Hematocrit 37.3 % (41.0-53.0); Hemoglobin 12.2 g/dL (13.5-17.5); Lymphocytes # (auto) 0.7 10 ^3/uL (0.4-5.4); Lymphocytes % (auto) 12.9 % (10.0-50.0); Mean Corpuscular Hgb Conc. 32.6 g/dL (32.0-36.0); Monocytes # (auto) 0.6 10 ^3/uL (0-1.3); Monocytes % (auto) 10.5 % (0.0-12.0); Platelet Count (auto) 125 10^3/uL (140-450); Red Blood Cells 4.19 10^6/uL (4.5-5.90); Red Cell Distribution Width 14.7 % (11.8-14.3); White Blood Cell 5.5 10^3/uL (4.4-10.8)
[2019-05-04 11:44] LABS: Alanine Aminotransferase < 6 U/L (16-61); Albumin 3.8 g/dL (3.4-5.0); Anion Gap 8 (5-15); Blood Urea Nitrogen 64 mg/dL (7-18); Calcium 8.4 mg/dL (8.5-10.1); Carbon Dioxide 26 mmol/L (21-32); Chloride 97 mmol/L (98-107); Glucose 81 mg/dL (74-106); Magnesium 2.7 mg/dL (1.6-2.6); Sodium 131 mmol/L (136-145)
[2019-05-04 11:49] LABS: Alkaline Phosphatase 93 U/L (45-117); Aspartate Aminotransferase < 3 U/L (15-37); BUN/Creatinine Ratio 4.4; Bilirubin, Total 0.3 mg/dL (0.2-1.0); GFR African American 5 mL/min; GFR Non-African American 4 mL/min; Total Protein 7.2 g/dL (6.4-8.2)
[2019-05-04] MEDS ORDERED: NITROGLYCERIN 0.4 MG SL TAB SL PRN (13:30)
[2019-05-04] MEDS ORDERED: DEXTROSE (50%) 50ML SYRG IV PRN (13:30)
[2019-05-04] MEDS ORDERED: MORPHINE SULF INJ 2 MG/ML SYRINGE 1ML IV PRN ×2 (13:30→14:00)
[2019-05-04] MEDS ORDERED: ACETAMINOPHEN 500 MG TAB PO PRN (14:00)
[2019-05-04] MEDS ORDERED: ALBUTEROL SULF 2.5 MG/0.5ML(0.5%) NEB SOLN NEB PRN (14:00)
[2019-05-04] MEDS ORDERED: HYDROcodone-ACET 5/325MG TAB PO PRN (14:00)
[2019-05-04] MEDS ORDERED: OSELTAMIVIR 30 MG CAP PO PRN (14:00)
[2019-05-04] MEDS ORDERED: ONDANSETRON HCL 4 MG/2 ML VIAL IV PRN (14:00)
[2019-05-04] MEDS ORDERED: IPRATROPIUM BROM 0.5 MG/2.5ML INH SOL NEB PRN (14:00)
[2019-05-04] MEDS: hydrALAZINE HCL 20 MG/ML VL IV PRN (14:12)
[2019-05-04] MEDS: prednisoLONE ACETATE 1% OPTH SUSP 5ML OP SCH (14:23)
[2019-05-04 15:30] VITALS: BP 184/90
[2019-05-04] MEDS ORDERED: LABETALOL HCL 5 MG/ML 4ML SYRINGE IV ONE (16:00)
[2019-05-04] MEDS ORDERED: LABETALOL HCL 5 MG/ML ML 20ML VIAL IV ONE (16:15)
[2019-05-04] MEDS: InsuLIN REG 1unit/0.01ml Soln (100units/ml) SC SCH ×2 (17:00→23:20)
[2019-05-04] MEDS: ACCU-CHEK COMFORT CURVE STRIP VI SCH ×2 (17:25→23:20)
[2019-05-04] MEDS: SEVELAMER 800 MG TAB PO SCH (18:00)
[2019-05-04] MEDS ORDERED: FAMOTIDINE 20 MG TAB PO SCH (18:00)
[2019-05-04] MEDS ORDERED: SODIUM CHL 0.9% 1000 ML BAG XX ONE (18:30)
--- NOTE | 2019-05-04 20:40 | NUR ---
PT DOES NOT APPEAR TO BE IN DISTRESS AT THIS TIME. PRN TX NO INDICATED AT THIS TIME. SPO2 97% ON RA HR 86 RR 17 B/S CRACKLES WILL CONTINUE TO MONITOR. PT EDUCATED ON USE OF NURSE CALL BUTTON IF BEGINS TO HAVE SOB.
--- NOTE | 2019-05-04 23:20 | NUR ---
Telemetry admit from ER Patient admitted to Telemetry unit. Patient oriented primary RN, unit, room, bed, and unit policies regarding patient care and visiting hours. Patient now on continuous telemetry monitoring, tele box #25 and telemetry reading on arrival to unit is sinus rhythm. Patient placed on bedside oxygen, weighed by bedscale and encouraged to call if they need something. All questions and concerns addressed, patient verbalized understanding. Bed is in lowest position, bed rails 2x, bed wheels locked. Call light and bedside table are within reach.
[2019-05-04 23:35] VITALS: BP 155/77
--- NOTE | 2019-05-04 23:38 | NUR ---
Low blood sugar Patient is awake and alert, no s/s of distress or SOB. Gave patient orange juice and a sandwich. Will reassess and monitor patient Q1 and PRN.
--- NOTE | 2019-05-04 23:38 | NUR ---
Informed patient to provide list of home medications to verify. Patient states will bring a list of his home medications in the morning. Will inform morning shift RN.
--- NOTE | 2019-05-04 23:42 | NUR ---
Low blood sugar reassessment Blood sugar within normal limits. Patient does not have any s/s of distress or SOB. Insulin held. Will continue to monitor patient Q1 and PRN.
[2019-05-05] MEDS: prednisoLONE ACETATE 1% OPTH SUSP 5ML OP SCH ×4 (00:02→21:06)
[2019-05-05] MEDS: hydrALAZINE HCL 20 MG/ML VL IV PRN (01:43)
[2019-05-05 05:00] VITALS: BP 150/70
[2019-05-05] MEDS: InsuLIN REG 1unit/0.01ml Soln (100units/ml) SC SCH ×2 (05:51→11:30)
[2019-05-05] MEDS: ACCU-CHEK COMFORT CURVE STRIP VI SCH ×2 (05:52→11:50)
--- NOTE | 2019-05-05 07:20 | NUR ---
Opening Shift Note Assumed care of patient, awake and alert. No S/S of distress/SOB or pain. Instructed on POC and to call for assist PRN, will continue to monitor for changes Q1hr and PRN. bed in low position call light within reach and bed alarm on.
[2019-05-05 07:30] LABS: Basophils # (auto) 0 10 ^3/uL (0-0.2); Basophils % (auto) 0.9 % (0.0-2.0); Eosinophils # (auto) 0.2 10 ^3/uL (0-0.8); Hematocrit 34.8 % (41.0-53.0); Hemoglobin 11.1 g/dL (13.5-17.5); Lymphocytes # (auto) 0.7 10 ^3/uL (0.4-5.4); Lymphocytes % (auto) 14.9 % (10.0-50.0); Mean Corpuscular Hemoglobin 28.6 pg (28.0-32.0); Mean Corpuscular Volume 89.3 fL (80.0-100.0); Monocytes # (auto) 0.5 10 ^3/uL (0-1.3); Monocytes % (auto) 11.9 % (0.0-12.0); Neutrophils # (auto) 3.1 10 ^3/uL (1.6-8.6); Neutrophils % (auto) 68.3 % (37.0-80.0); Nucleated Red Blood Cells % 0.1 %; Platelet Count (auto) 109 10^3/uL (140-450); Red Cell Distribution Width 14.8 % (11.8-14.3); White Blood Cell 4.5 10^3/uL (4.4-10.8)
[2019-05-05 07:55] LABS: Albumin 3.3 g/dL (3.4-5.0); Anion Gap 8 (5-15); Blood Urea Nitrogen 55 mg/dL (7-18); Calcium 8.2 mg/dL (8.5-10.1); Carbon Dioxide 25 mmol/L (21-32); Chloride 98 mmol/L (98-107); Glucose 76 mg/dL (74-106); Potassium 5.2 mmol/L (3.5-5.1); Sodium 131 mmol/L (136-145)
[2019-05-05] MEDS: SEVELAMER 800 MG TAB PO SCH ×3 (07:56→18:12)
[2019-05-05 08:01] LABS: Alanine Aminotransferase < 6 U/L (16-61); Alkaline Phosphatase 81 U/L (45-117); Aspartate Aminotransferase < 3 U/L (15-37); BUN/Creatinine Ratio 4.1; Bilirubin, Total 0.3 mg/dL (0.2-1.0); GFR African American 5 mL/min; GFR Non-African American 4 mL/min; Total Protein 6.2 g/dL (6.4-8.2)
--- NOTE | 2019-05-05 08:15 | NUR ---
CRITICAL LAB Critical creatine level of 13.4 mg/dL. Hospitalist paged, awaiting call back.
--- NOTE | 2019-05-05 08:42 | NUR ---
Respiratory note: ASSESSED PT FOR PRN BREATHING TX. PT IS AWAKE AND ALERT, NO S/S OF RESPIRATORY DISTRESS. PT IS CURRENTLY ON RA, APO2 98%, HR 78, RR 18. PT IS AWARE TO HAVE RT PAGED IF BREATHING TX IS NEEDED. WILL CONTINUE TO MONITOR PT. Addendum: 05/05/19 at 0924 by MARI OLIVIER, RT RT CORRECTION: SPO2 98%
[2019-05-05 09:00] VITALS: BP 152/76
[2019-05-05] MEDS: amLODIPine BESYLATE 5 MG TAB PO SCH (09:43)
[2019-05-05] MEDS: METOPROLOL TARTRATE 50 MG TAB PO SCH ×3 (09:43→21:05)
[2019-05-05] MEDS ORDERED: LISINOPRIL 20 MG TAB PO SCH (10:00)
[2019-05-05 13:00] VITALS: BP 143/75
[2019-05-05] MEDS ORDERED: hydrALAZINE HCL 20 MG/ML VL IV PRN (16:15)
[2019-05-05] MEDS ORDERED: SODIUM ZIRCONIUM CYCL 10 GM PAK PO ONE (16:15)
[2019-05-05 17:00] VITALS: BP 147/71
--- NOTE | 2019-05-05 19:23 | NUR ---
CLOSING SHIFT NOTE Patient currently in bed no s/s of distress noted. Patient denies any pain. Bed in low position, locked, side rails x2 up, call light within reach. Will endorse care to NOC AQUILES Esparza.
[2019-05-05] MEDS: ATORVASTATIN 20 MG TAB PO SCH ×2 (21:05)
[2019-05-05 22:00] VITALS: BP_SYST 133; BP_SYST 168; BP_DIAS 70; BP_DIAS 77
[2019-05-06 05:00] VITALS: BP 145/76
[2019-05-06] MEDS: prednisoLONE ACETATE 1% OPTH SUSP 5ML OP SCH ×2 (05:06→14:00)
[2019-05-06 06:15] LABS: Basophils # (auto) 0 10 ^3/uL (0-0.2); Basophils % (auto) 0.9 % (0.0-2.0); Eosinophils # (auto) 0.2 10 ^3/uL (0-0.8); Eosinophils % (auto) 3.9 % (0.0-7.0); Hematocrit 35.6 % (41.0-53.0); Hemoglobin 11.5 g/dL (13.5-17.5); Lymphocytes # (auto) 1.1 10 ^3/uL (0.4-5.4); Lymphocytes % (auto) 19.7 % (10.0-50.0); Mean Corpuscular Hemoglobin 28.5 pg (28.0-32.0); Mean Corpuscular Hgb Conc. 32.4 g/dL (32.0-36.0); Mean Corpuscular Volume 88.2 fL (80.0-100.0); Monocytes # (auto) 0.7 10 ^3/uL (0-1.3); Monocytes % (auto) 12.1 % (0.0-12.0); Neutrophils # (auto) 3.4 10 ^3/uL (1.6-8.6); Neutrophils % (auto) 63.4 % (37.0-80.0); Nucleated Red Blood Cells % 0.1 %; Platelet Count (auto) 115 10^3/uL (140-450); Red Blood Cells 4.04 10^6/uL (4.5-5.90); Red Cell Distribution Width 14.7 % (11.8-14.3); White Blood Cell 5.4 10^3/uL (4.4-10.8)
[2019-05-06 06:28] LABS: BUN/Creatinine Ratio 4.1; Calcium 8.7 mg/dL (8.5-10.1); Magnesium 2.5 mg/dL (1.6-2.6)
--- NOTE | 2019-05-06 06:52 | NUR ---
paged hospitalist to notify critical value of creatinine 15.2. Was notified by [employer] laborer vegetable farm. awaiting call back from hospitalist.
--- NOTE | 2019-05-06 06:57 | NUR ---
spoke to hospitalist angelita and notified him of critical value 15.20 of creatinine. no new orders given. will continue to monitor patient.
[2019-05-06] MEDS ORDERED: SODIUM CHL 0.9% 1000 ML BAG XX ONE (07:00)
--- NOTE | 2019-05-06 07:18 | NUR ---
OPENING SHIFT NOTE Patient currently in bed receiving dialysis. cart pusher at bedside. No s/s of distress noted. Bed in low position,locked and call light within reach. Patient instructed on POC and to call for assistance as needed, patient verbalized understanding. Will continue care.
--- NOTE | 2019-05-06 07:28 | NUR ---
PROVIDED REPORT TO CASIMIRO KWAN. NOTIFIED OF CRITICAL VALUE CREATININE. PATIENT IS RESTING IN BED WITH NO SIGNS OF DISTRESS AT THIS TIME.
[2019-05-06] MEDS: SEVELAMER 800 MG TAB PO SCH ×2 (08:00→12:26)
[2019-05-06 09:00] VITALS: BP 147/80
--- NOTE | 2019-05-06 09:50 | NUR ---
Respiratory note: ASSESSED PT FOR PRN TX . PT WAS ASLEEP, HAVING DIALYSIS AT THIS TIME. NO RESP DISTRESS NOTED. HR 73, RR 20, SPO2 97% ON ROOM AIR. BS ARE CLEAR. PT KNOWS TO HAVE RT PAGED IF TX IS NEEDED.
[2019-05-06] MEDS: METOPROLOL TARTRATE 50 MG TAB PO SCH ×2 (10:00→12:31)
[2019-05-06] MEDS: amLODIPine BESYLATE 5 MG TAB PO SCH ×2 (10:00→12:32)
--- NOTE | 2019-05-06 11:10 | NUR ---
DIALYSIS COMPLETED No s/s of distress noted in patient. 2 L of fluid removed. BP 164/90 HR77
[2019-05-06] MEDS ORDERED: AZIT250T PO (12:00)
[2019-05-06] MEDS ORDERED: AZITHROMYCIN 250 MG TAB PO ONE (12:00)
[2019-05-06 12:36] VITALS: BP 115/77
[2019-05-06 12:40] VITALS: BP 168/88
[2019-05-06 13:00] VITALS: BP 168/88
--- NOTE | 2019-05-06 14:40 | NUR ---
TELE RETURNED TELE BOX #[id number] SENT BACK TO TECH ROOM. DIGITAL MEDIA ANALYST ZENA AWARE.
[2019-05-06 17:00] VITALS: BP 162/86
--- NOTE | 2019-05-06 17:09 | NUR ---
Discharge instructions given as ordered. Encourage to follow up with PMD as instructed. All questions and concerns addressed. Patient verbalized understanding. IV removed with catheter intact, pressure dressing applied. Telemetry unit returned to ICU. Patient taken to vehicle via wheelchair with all personal belongings, accompanied by staff and family member. No distress noted at time of departure.
== END 2019-05-06 17:00 | disposition home or self-care (01) | DRG 194 ==
LOC: ER 10:03 → TELE 10:04 → TELE-CENTR 23:21
PROVIDERS: ADMIT Nurse Practitioner Acute Care; ATTEND Internal Medicine
PROC: 5A1D70Z Performance of Urinary Filtration, Intermittent, Less than 6 Hours Per Day (ICD-10-PCS; principal; 2019-05-04)
PROC: 5A1D70Z Performance of Urinary Filtration, Intermittent, Less than 6 Hours Per Day (ICD-10-PCS; 2019-05-06)
DX: I13.2 Hypertensive heart and chronic kidney disease with heart failure and with stage 5 chronic kidney disease, or end stage renal disease (principal); E11.22 Type 2 diabetes mellitus with diabetic chronic kidney disease; E11.40 Type 2 diabetes mellitus with diabetic neuropathy, unspecified; E44.1 Mild protein-calorie malnutrition; I27.21 Secondary pulmonary arterial hypertension; B34.9 Viral infection, unspecified; J20.9 Acute bronchitis, unspecified; N18.6 End stage renal disease; E87.5 Hyperkalemia; D63.8 Anemia in other chronic diseases classified elsewhere; E66.9 Obesity, unspecified; J42 Unspecified chronic bronchitis; E78.5 Hyperlipidemia, unspecified; I50.43 Acute on chronic combined systolic (congestive) and diastolic (congestive) heart failure; J45.909 Unspecified asthma, uncomplicated; Z79.82 Long term (current) use of aspirin; Z79.84 Long term (current) use of oral hypoglycemic drugs; Z99.2 Dependence on renal dialysis; Z82.49 Family history of ischemic heart disease and other diseases of the circulatory system; Z83.3 Family history of diabetes mellitus; Z68.26 Body mass index [BMI] 26.0-26.9, adult
CPT/HCPCS: 36415; 71045; 80048; 80053; 82962; 83036; 83605; 83735; 83880; 84484; 85025; 85652; 86141; 87040; 87081; 87804; 90935; 93005; 96374; 96375; G0378; J1642